=== PATIENT | male | born 1950 | race Caucasian/White ===

== ENCOUNTER 2017-05-13 10:01 | Inpatient (IN) ==
--- NOTE | 2017-05-12 22:20 | Discharge Summary ---
<Elissa Nance - Last Filed: 05/12/17 22:16> Date of Encounter: 05/12/17 - Discharge Diagnosis (1) Arthritis of knee, right Priority: Primary Status: Acute (2) Status post total knee replacement, right Priority: Primary Status: Acute (3) Obesity Priority: Secondary Status: Chronic Qualifiers: Obesity type: due to excess calories Obesity classification: unspecified obesity classification Serious obesity comorbidity presence: unspecified whether serious comorbidity present Qualified Code(s): E66.09 - Other obesity due to excess calories (4) BPH (benign prostatic hyperplasia) Priority: Secondary Status: Chronic Qualifiers: Lower urinary tract symptom presence: symptoms absent Qualified Code(s): N40.0 - Benign prostatic hyperplasia without lower urinary tract symptoms (5) 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 05/12/17 [Rx] OxyCODONE Immed Rel [Roxicodone 5 MG] 5 - 10 mg PO Q6HR PRN #40 tablet 05/12/17 [Rx] Aspirin [Lo-Dose Aspirin EC] 81 mg PO DAILY 05/13/17 [History] B2/Vits A,C,E/Lut/Zeaxanth/Min [Icaps Tablet] 1 tab PO DAILY 05/13/17 [History] Donepezil [Aricept] 10 mg PO HS 05/13/17 [History] Ferrous Sulfate [Iron] 325 mg PO DAILY 05/13/17 [History] Folic Acid 0.4 mg PO DAILY 05/13/17 [History] Meloxicam 15 mg PO DAILY 05/13/17 [History] Omeprazole [PriLOSEC] 20 mg PO DAILY 05/13/17 [History] Tamsulosin [Flomax] 0.4 mg PO DAILY 05/13/17 [History] Allergies/Adverse Reactions: Allergies No Known Allergies Allergy (Unverified 05/08/17 10:24) Primary care physician: PCP NONE - Patient Status Disposition: Home Health Service Condition: Good - Discharge Instructions Follow Up With: NONE,PCP [Non-Partnered Physician] - - Hospital Course Hospital course: Mr. Hoffman is a 66 year old male - Time Spent with Patient Total time spent providing and/or coordinating discharge services: <Andrew Rangel - Last Filed: 05/14/17 06:43> Date of Encounter: 05/14/17 Time of Encounter: 06:42 - Discharge Diagnosis (1) Obesity (BMI 30.0-34.9) Priority: Secondary Status: Chronic (2) Arthritis of knee, right Priority: Primary Status: Chronic (3) Status post total knee replacement, right Priority: Primary Status: Acute (4) BPH (benign prostatic hyperplasia) Priority: Secondary Status: Chronic Qualifiers: Lower urinary tract symptom presence: symptoms absent Qualified Code(s): N40.0 - Benign prostatic hyperplasia without lower urinary tract symptoms Primary care physician: Benjamin Palomo - Patient Status Functional capacity at discharge: uses cane/walker Overall status at discharge: patient is progressing back to baseline - Hospital Course Hospital course: Mr. Hoffman is a 66 year old male Status post total knee replacement right The patient had an uneventful postoperative course. They received antibiotics and physical therapy and were discharged in stable condition. There will follow -up in the office in 2 weeks. - Time Spent with Patient Total time spent providing and/or coordinating discharge services:
--- NOTE | 2017-05-12 22:22 | Physician Discharge Referral ---
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 For more information, call the [place] Tobacco Quit Line at 5-271-GIJS-NOW. - Diet/Nutrition Diet/Nutrition Orders: Regular - Activity Activity Orders: Up ad jorge, Ambulate - Services Needed Following services are medically necessary services: Nursing, Home Health Aide, Physical Therapy, Occupational Therapy Other Treatments: Opsite dressing, leave intact until first post-operative visit. If dressing becomes >50% saturated, contact office, remove dressing and place appropriate dressing in its place. Do not allow for dressing to get wet. Lexy in place, plan to remove at post-operative day #14-16. Total Joint Precautions x 6 weeks Apply cold therapy wrap 3-6x/day for 20 minutes at a time. Encourage ambulation throughout the day Use Incentive spirometer 10x/hour. Elevate affected extremity above heart as tolerated. Brace: Wear knee immobilizer at night x 2 weeks. - Transfer Medications Prescriptions: OxyCODONE Immed Rel [Roxicodone 5 MG] 5 - 10 mg PO Q6HR PRN #40 tablet PRN Reason: Pain Aspirin Enteric Coated [Aspirin EC] 325 mg PO DAILY #21 tablet. Home Medications: Aspirin Enteric Coated [Aspirin EC] 325 mg PO DAILY #21 tablet. 05/12/17 [Rx] OxyCODONE Immed Rel [Roxicodone 5 MG] 5 - 10 mg PO Q6HR PRN #40 tablet 05/12/17 [Rx] Allergies/Adverse Reactions: Allergies No Known Allergies Allergy (Unverified 05/08/17 10:24) Certification: Further, I certify that my clinical findings support that this patient is homebound (i.e. absences from home require considerable and taxing effort and are for medical reasons or episcopalian services or infrequently or short duration when for other reasons) because: Homebound Reason: Post-surgery restriction and or conditions limit ability to leave home Attestation: My signature below is to certify that this patient is under my care and that I, or nurse practitioner, or a physician's executive staff assistant working with me, has a face-to -face encounter with this patient.
--- NOTE | 2017-05-13 10:55 | History & Physical Report ---
Date of Encounter: 05/13/17 Time of Encounter: 10:55 24 Hour HP Update - Instructions Instructions: If the History and Physical is less than 30 days old and was completed prior to A.M. admission and or procedure and has NOT been updated on calendar day of procedure please complete this update prior to performing procedure. - Update Patient reports changes in Medical Condition: No Changes in examination, assessment, or condition: No Changes in Medication: No Preop tests/diagnostics Reviewed: Yes Surgery Remains Indicated: Yes Consent for Planned Operative Procedure(s) Verified: Yes - Pre-Operative Checklist Preoperative Checklist Indicated: No Prophylactic Antibiotic Ordered: Yes Is VTE Prophylaxis Indicated?: Yes
[2017-05-13] MEDS ORDERED: CeFAZolin Pre 2,000 MG/100 ML 2,000 MG/100 ML BAG IVPB ONE (10:58)
[2017-05-13] MEDS ORDERED: Ringers Solution, Lactated 1,000 ML IVC SCH ×2 (11:00→15:14)
[2017-05-13] MEDS ORDERED: *HR* Midazolam HCl 2 MG/2 ML VIAL ONE (11:26)
[2017-05-13] MEDS ORDERED: *HR* FentaNYL (PF) 100 MCG/2 ML VIAL ONE (11:26)
[2017-05-13] MEDS ORDERED: *HR* Propofol 200 MG/20 ML VIAL IVP ONE (11:26)
--- NOTE | 2017-05-13 11:26 | Anesthesia Evaluation PreOp ---
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 Any Significant HX Other Medical History: Denies Any Significant HX, GERD Anesthesia History: No Prior Anesthetic Complications, Past Anesthesia (hernia, r knee arth, tonsils) Alcohol Use: none Drug use: none Medications and Allergies Aspirin Enteric Coated [Aspirin EC] 325 mg PO DAILY #21 tablet.dr 05/12/17 [Rx] OxyCODONE Immed Rel [Roxicodone 5 MG] 5 - 10 mg PO Q6HR PRN #40 tablet 05/12/17 [Rx] Aspirin [Lo-Dose Aspirin EC] 81 mg PO DAILY 05/13/17 [History] B2/Vits A,C,E/Lut/Zeaxanth/Min [Icaps Tablet] 1 tab PO DAILY 05/13/17 [History] Donepezil [Aricept] 10 mg PO HS 05/13/17 [History] Ferrous Sulfate [Iron] 325 mg PO DAILY 05/13/17 [History] Folic Acid 0.4 mg PO DAILY 05/13/17 [History] Meloxicam [Meloxicam] 15 mg PO DAILY 05/13/17 [History] Omeprazole [PriLOSEC] 20 mg PO DAILY 05/13/17 [History] Tamsulosin [Flomax] 0.4 mg PO DAILY 05/13/17 [History] Allergies No Known Allergies Allergy (Unverified 05/08/17 10:24) - Meds/Allergy Pre-op Review Medications Reviewed: Yes Allergies Reviewed: Yes Beta Blockers on Current Med List: No Anesthesia Results - Labs Laboratory Tests 05/08/17 05/08/17 05/08/17 10:33 10:33 10:33 Hgb 14.2 Hct 43.4 Plt Count 248 PT 12.0 INR 1.1 APTT 28.3 Sodium 137 Potassium 4.0 Creatinine 0.85 - Imaging EKG: pending Anesthesia Exam O2 Sat Height 1.83 m Height 1.83 m Weight 115.212 kg Weight 115.212 kg O2 Sat by Pulse Oximetry 92 Vital Signs Temp Pulse Resp BP Pulse Ox 97.6 F 64 18 119/76 92 05/13/17 11:00 05/13/17 11:00 05/13/17 11:00 05/13/17 11:00 05/13/17 11:00 Height: 1.83 Weight: 115 NPO (# of Hours): >8 - HEENT Pupil (Motor): Pupils equal, EOMI Mallampati: II Teeth: Edentulous, Poor dentition Denture Type: Upper: Complete Oral Opening: Greater than 3 - BUNK HOUSE WORKER LOC: Oriented BUNK HOUSE WORKER Motor: Normal RUE, Normal LUE, Normal RLE, Normal LLE, Normal Face B[employer]K HOUSE WORKER Sensory: Normal: RUE, LUE, RLE, LLE, Face - Cardiac Rhythm: Regular Murmur: None - Pulmonary Breath Sounds: bilateral Clear Respiratory Effort: Symmetrical Anesthesia Assess/Plan ASA Score: 2 Modified Tasha Scale for Level of Consciousness: Cooperative, oriented, and tranquil Anesthetic Plan: General, Regional Monitoring Plan: Standard Monitors Recovery Plan: PACU
[2017-05-13] MEDS ORDERED: Lidocaine -MPF 2% 2 ML VIAL ONE (11:29)
[2017-05-13] MEDS ORDERED: CloNIDine Patch 0.1 MG PATCH (WEEKLY) TD ONE (11:30)
[2017-05-13] MEDS ORDERED: *HR* HYDROmorphone (PF) 1 MG/ML SYRINGE IVP PRN ×2 (11:30→15:14)
[2017-05-13] MEDS ORDERED: *HR* Labetalol 20 MG/4 ML SYRINGE IVP PRN (11:30)
[2017-05-13] MEDS ORDERED: *HR* Promethazine 25 MG/ML VIAL IVP PRN (11:30)
[2017-05-13] MEDS ORDERED: ROPIVACAINE HCL/PF 0.5% 30 ML VIAL ONE (12:28)
[2017-05-13] MEDS ORDERED: Bupivacaine/Clonidine Syringe 1 EACH SYRINGE ONE (12:29)
--- NOTE | 2017-05-13 12:52 | Anesthesia Procedures ---
Date of Encounter: 05/13/17 Time of Encounter: 12:49 Procedures: Anesthesia - Nerve Block Procedure Date: 05/13/17 Time: 12:49 Allergies/Adv Reactions: nka Pre-op Diagnosis: right knee OA Surgical Procedure: right TKA Checklist: Correct Patient Identifier, Correct procedure, History checked Correct side: Right Blood Thinner: No Monitor Applied: EKG, BP, Pulse Oximetry Supplemental Oxygen via Nasal Cannula (L/min): 2 Sedation: Versed (mg): 2 Sedation: Fentanyl (mcg): 100 Indication: Post Op Analgesia Pre-op Neuro Deficits: No Block Type: Femoral, Other (IPACK / anterior infiltration) Catheter placed: No Sterile Technique: Yes Ultrasound used: Yes Anatomy identified: Yes Visual spread of Local: Yes Neuro Stimulation: Yes (femoral only) Nerve Stimulator Range: 0.2 - 0.4 mA Blood on Needle Aspiration: No Smooth Injection of Local: Yes Pain with Injection of Local: No Prep: Chlorhexadine Needle: 22 x 50 mm Stimuplex, 21 x 100 mm Stimuplex Local: 0.25% Bupivicaine w/Clonidine 20 mcg/cc (ipack / anterior infiltration only), Ropivacaine (0.5% femoral only), Other (decadron 10mg femoral only) Volume (cc): 70 Number of Attempts: 1 Complications: None/effective block Vitals: Vital Signs/O2 Sat/Glucose, Most Recent Temp Pulse Resp BP Pulse Ox 97.6 F 54 16 131/98 96 05/13/17 11:00 05/13/17 12:47 05/13/17 12:47 05/13/17 12:47 05/13/17 12:47
[2017-05-13] MEDS ORDERED: *HR* Magnesium Sulfate 1 GM/2 ML VIAL ONE (13:06)
[2017-05-13] MEDS ORDERED: *HR* Succinylcholine 200 MG/10 ML VIAL IVP ONE (13:07)
[2017-05-13] MEDS ORDERED: Lidocaine -MPF 4% 5 ML AMPUL ONE (13:10)
[2017-05-13] MEDS ORDERED: Ketorolac 30 MG/ML VIAL ONE (13:33)
[2017-05-13] MEDS ORDERED: *HR* HYDROmorphone 2 MG/ML SYRINGE ONE (13:34)
[2017-05-13] MEDS ORDERED: Dexamethasone 4 MG/ML VIAL ONE (13:36)
[2017-05-13] MEDS ORDERED: Ondansetron 4 MG/2 ML VIAL ONE (13:36)
--- NOTE | 2017-05-13 13:54 | Orthopedic Operative Note ---
Date of procedure: 05/13/17 Pre-op diagnosis: Right knee arthritis Post-op diagnosis: same Procedure: Procedure: Right Total knee replacement Estimated blood loss: 200 cc Hardware: Metal and polyethylene replacement. Arthrex Femur: 7 Tibia: 7 PS insert: 11 Patella: 40 Exam Under anesthesia: Loss of full extension 15 degrees varus alignment. Procedural Notes: Grade 4 arthritic changes medial compartment grade 3 arthritic changes patellofemoral joint. Operative procedure: The patient was brought to the operating room and placed on the operating room table. After general anesthesia was administered the operative knee was examined. Findings were noted in the exam under anesthesia. The operative extremity was prepped and draped in sterile surgical fashion. The patient received IV antibiotics prior to skin incision. A standard midline incision was made centered over the patella. The incision was made through the skin and subcutaneous tissue. A medial parapatellar tendon approach was performed. Care was taken to preserve tissue along the medial aspect of the patella. And to protect the patella tendon. The deep MCL was released off the medial tibia. The infra patella fat pad was excised. Knee was brought into flexion. Patient noted to have grade 4 arthritic changes medial compartment and grade 3 arthritic changes patellofemoral joint. The entry hole was made for the intramedullary femoral guide. The guide was seated in 6 degrees of valgus. Anterior cut was made followed by the distal cut. The ACL the PCL the medial and the lateral menisci were excised. The tibia was subluxed forward. The entry hole was made for the intramedullary tibial guide. Guide was seated to resect 2 mm off the more abnormal side. The knee was brought into flexion the distal femur was sized to a 7. The femoral guide was seated, the anterior cut was made followed by the posterior condylar cut, followed by the chamfer cuts. The finishing guide was seated the box cut was made and the lug holes were drilled. The tibia was sized to a 7, the tibial tray was seated and prepared with the large drill followed by the fin cutter. Trial reduction revealed full extension no varus valgus instability with the appropriate alignment PS Renata. The patella was everted and cut was made at the level of the insertion of the quadriceps and patella tendon. The patella was sized to a 40 the guide was seated and the lug holes are drilled. Trial reduction revealed excellent patella tracking. All trial components were removed all bony surfaces were irrigated. The tibia was cemented first followed by the femur. The 11 PS Renata was seated and the knee was brought into full extension. The patella was cemented and held in place with the patellar holding clamp. After the cement had hardened, the knee sat for 2 minutes with a Betadine saline solution. The knee was then irrigated out with 2 L of pulse irrigation. The PA close the knee. The extensor mechanism was closed with #2 FiberWire suture and #2 PDS suture. The subcutaneous tissue was then irrigated and closed deep with #1 PDS suture superficially with 0 PDS suture and skin was closed with skin enrique. The patient was then placed in a sterile dressing and a postoperative brace extubated and transferred to recovery room in stable condition. Anesthesia: MUMTAZ Surgeon: Andrew Rangel Paper Testing Supervisor: Elissa Nance Condition: stable Disposition: PACU
[2017-05-13] MEDS ORDERED: *HR* HYDROmorphone (PF) 1 MG/ML SYRINGE ONE (14:30)
--- NOTE | 2017-05-13 14:59 | Anesthesia Evaluation Post Op ---
Date of Encounter: 05/13/17 Time of Encounter: 14:58 - Vital Signs Vital Signs: Vital Signs/O2 Sat/Glucose, Most Current Temp Pulse Resp BP Pulse Ox 05/13/17 14:50 97.8 F 63 16 132/82 100 05/13/17 14:40 61 16 139/98 99 05/13/17 14:30 70 16 143/95 97 05/13/17 14:20 97.1 F L 106 16 129/84 96 05/13/17 12:47 54 16 131/98 96 05/13/17 12:18 57 16 127/72 96 05/13/17 11:00 97.6 F 64 18 119/76 92 - Lungs Lungs: Clear Ascult./Percussion - Airway Airway: Non-obstructed - Cardiovascular Regular Rate - Mental Status Mental Status: Alert & Oriented, Answers Appropriately - Pain Pain Scale: 0 - Nausea Vomiting Nausea Vomiting: Not Present - Hydration Hydration: Ice chips - Discharge PostOp Status: Transfer Patient to floor
[2017-05-13 15:06] LABS: Hematocrit 40.6 % (37.5-50.1); Hemoglobin 13.3 g/dL (12.9-16.9)
[2017-05-13] MEDS ORDERED: Sennosides 8.6 MG TABLET PO PRN (15:14)
[2017-05-13] MEDS ORDERED: Naloxone 0.4 MG/ML INJ IVP PRN (15:14)
[2017-05-13] MEDS ORDERED: *HR* OxyCODONE Immed Rel 5 MG TABLET PO PRN ×2 (15:14)
[2017-05-13] MEDS ORDERED: Ondansetron 4 MG/2 ML VIAL IVP PRN (15:14)
[2017-05-13] MEDS ORDERED: MOM Conc 10 ML UD.LIQ PO PRN (15:14)
--- NOTE | 2017-05-13 16:53 | Electrocardiograph Report ---
[facility] Test Date: 2017-05-13 Pat Name: Mayco Hoffman Department: 106 Room: [facility] Gender: M Auto Service Writer: ISA : 1950 Requested By: Kun Beach Order Number: [id number] Reading MD: Quentin Pearce MD Measurements Intervals [place] Rate: 60 P: 54 VT: 169 QRS: 24 QRSD: 102 T: 32 QT: 431 QTc: 431 Interpretive Statements SINUS RHYTHM INTERPRETATION BASED ON A DEFAULT AGE OF 40 YEARS Electronically Signed On 05-13-2017 16:51:39 EDT by Quentin Pearce MD
[2017-05-13] MEDS: ceFAZolin 2,000 MG in D5% in Water 100 ML IVPB SCH ×2 (16:56→23:07)
[2017-05-13] MEDS: *HR* Enoxaparin 30 MG/0.3 ML SYRINGE SQ SCH (17:04)
[2017-05-13] MEDS ORDERED: *HR* Enoxaparin 30 MG/0.3 ML SYRINGE SQ SCH (18:00)
[2017-05-13] MEDS ORDERED: Temazepam 15 MG CAPSULE PO PRN (21:00)
[2017-05-14] MEDS: *HR* Enoxaparin 30 MG/0.3 ML SYRINGE SQ SCH ×2 (04:19→16:55)
[2017-05-14 05:34] LABS: Hematocrit 40.3 % (37.5-50.1); Hemoglobin 13.5 g/dL (12.9-16.9)
[2017-05-14 05:59] LABS: BUN/Creatinine Ratio 16 (6-26); Blood Urea Nitrogen 15 mg/dL (8-26); Calcium 9.1 mg/dL (8.6-10.8); Carbon Dioxide 25 mEq/L (19-29); Chloride 105 mEq/L (98-109); Glucose 152 mg/dL (70-99); Osmolality,Calculated 288 (280-300); Potassium 4.1 mEq/L (3.5-4.5); Sodium 137 mEq/L (136-145); eGFR For African Americans > 60 (> 60); eGFR For Non-African Americans > 60 (> 60)
--- NOTE | 2017-05-14 06:44 | Orthopedics Progress Note ---
Date of Encounter: 05/14/17 Time of Encounter: 06:43 - Assessment and Plan (1) Obesity (BMI 30.0-34.9) Current Visit: Yes Status: Chronic (2) Arthritis of knee, right Current Visit: Yes Status: Chronic (3) Status post total knee replacement, right Current Visit: Yes Status: Acute (4) BPH (benign prostatic hyperplasia) Current Visit: Yes Status: Chronic Qualifiers: Lower urinary tract symptom presence: symptoms absent Qualified Code(s): N40.0 - Benign prostatic hyperplasia without lower urinary tract symptoms Subjective Interval history: Patient was seen this morning doing well without complaints. Afebrile vital signs stable. Operative extremity: Neurovascularly intact Dressing clean dry and intact Calves nontender Assessment and plan: Continue with postoperative care Hematocrit 40 discharged today Objective Vital signs: Vital Signs Temp Pulse Resp BP Pulse Ox 05/14/17 04:15 97.7 F 57 17 139/76 97 05/14/17 01:10 97.8 F 67 18 137/86 95 05/13/17 17:39 98.2 F 69 16 150/78 93 05/13/17 16:53 97.9 F 57 16 137/81 97 05/13/17 15:43 97.5 F L 68 16 131/78 95 05/13/17 15:20 97.9 F 60 14 136/82 96 05/13/17 15:10 97.2 F L 56 16 127/79 100 05/13/17 15:00 60 16 139/85 98 05/13/17 14:50 97.8 F 63 16 132/82 100 05/13/17 14:40 61 16 139/98 99 05/13/17 14:30 70 16 143/95 97 05/13/17 14:20 97.1 F L 106 16 129/84 96 05/13/17 12:47 54 16 131/98 96 05/13/17 12:18 57 16 127/72 96 05/13/17 11:00 97.6 F 64 18 119/76 92 Intake and Output 05/13/17 05/13/17 05/14/17 15:59 23:59 07:59 Intake Total 250 / 250 300 / 300 Output Total 200 / 200 475 / 475 1700 / 1700 Balance -200 / -200 -225 / -225 -1400 / -1400 Intake: IV Fluids 100 / 100 100 / 100 Ancef 2,000 MG In 100 / 100 100 / 100 Dextrose 5% 100 ML @ 200 mls/hr IVPB Q8HR [facility] Rx#: [id number] Oral 150 / 150 200 / 200 Output: Urine 0 / 0 475 / 475 1700 / 1700 Estimated Blood Loss 200 / 200 Other: Weight 115.212 kg - Labs CBC & BMP: 05/14/17 05:21 05/14/17 05:21 Labs: Abnormal lab results Glucose 152 mg/dL (70-99) H 05/14/17 05:21 - VTE Documentation of Mechanical Device: Venous foot pump, device Consult Discharge Plan - Plan Referrals: NONE,PCP [Non-Partnered Physician] -
[2017-05-14] MEDS ORDERED: Aspirin Enteric Coated 81 MG Tablet PO SCH (09:00)
[2017-05-14] MEDS ORDERED: (Folic Acid [Folic Acid] 0.4 MG) PO SCH (09:00)
[2017-05-14] MEDS ORDERED: (B2/Vits A,C,E/Lut/Zeaxanth/Min [Icaps Tablet] 1 TAB) PO SCH (09:00)
--- NOTE | 2017-05-14 12:40 | Event Note ---
Date of Encounter: 05/14/17 Time of Encounter: 12:40 PCR - POD#1 - Right TKR Patient seen at bedside. Pain control: Yes Participating in PT. All questions and concerns addressed. Educated on use of incentive spirometer, ambulation, and hydration. Patient educated on post-operative restrictions and care. Addressed: See above D/C plan:.Home health today.
[2017-05-15] MEDS: *HR* Enoxaparin 30 MG/0.3 ML SYRINGE SQ SCH (05:27)
[2017-05-15 05:53] LABS: Hematocrit 33.3 % (37.5-50.1)
[2017-05-15 05:57] LABS: Hemoglobin 10.9 g/dL (12.9-16.9)
[2017-05-15 06:00] LABS: BUN/Creatinine Ratio 18 (6-26); Blood Urea Nitrogen 16 mg/dL (8-26); Calcium 8.3 mg/dL (8.6-10.8); Carbon Dioxide 25 mEq/L (19-29); Chloride 108 mEq/L (98-109); Glucose 150 mg/dL (70-99); Osmolality,Calculated 296 (280-300); Sodium 141 mEq/L (136-145); eGFR For African Americans > 60 (> 60); eGFR For Non-African Americans > 60 (> 60)
[2017-05-15 07:02] VITALS: BP 147/68
--- NOTE | 2017-05-15 07:42 | Orthopedics Progress Note ---
Date of Encounter: 05/15/17 Time of Encounter: 07:41 - Assessment and Plan (1) Obesity (BMI 30.0-34.9) Current Visit: Yes Status: Chronic (2) Arthritis of knee, right Current Visit: Yes Status: Chronic (3) Status post total knee replacement, right Current Visit: Yes Status: Acute (4) BPH (benign prostatic hyperplasia) Current Visit: Yes Status: Chronic Qualifiers: Lower urinary tract symptom presence: symptoms absent Qualified Code(s): N40.0 - Benign prostatic hyperplasia without lower urinary tract symptoms Subjective Interval history: Patient was seen this morning doing well without complaints. Discharge held yesterday secondary to pain control. Afebrile vital signs stable. Operative extremity: Neurovascularly intact Dressing clean dry and intact Calves nontender Assessment and plan: Continue with postoperative care Hematocrit 33 discharged today Objective Vital signs: Vital Signs Temp Pulse Resp BP Pulse Ox 05/15/17 06:43 98.5 F 68 16 147/68 99 05/15/17 03:26 98.3 F 62 16 144/71 98 05/14/17 23:43 98.5 F 68 14 118/66 97 05/14/17 19:59 98.5 F 58 15 122/70 97 05/14/17 16:00 98.1 F 84 14 112/68 97 05/14/17 11:49 97.8 F 67 14 139/74 97 Intake and Output 05/14/17 05/14/17 05/15/17 15:59 23:59 07:59 Intake Total 1390 / 1390 360 / 360 Output Total 100 / 100 250 / 250 225 / 225 Balance 1290 / 1290 110 / 110 -225 / -225 Intake: Oral 1390 / 1390 360 / 360 Output: Urine 100 / 100 250 / 250 225 / 225 Other: Meal Lunch Dinner Percent of Meal Consumed 100% 100% # Voids 1 Blood Glucose* 130 - Labs CBC & BMP: 05/15/17 05:10 05/15/17 05:10 Labs: Abnormal lab results Hgb 10.9 g/dL (12.9-16.9) L D 05/15/17 05:10 Hct 33.3 % (37.5-50.1) L 05/15/17 05:10 Glucose 150 mg/dL (70-99) H 05/15/17 05:10 Calcium 8.3 mg/dL (8.6-10.8) L 05/15/17 05:10 - VTE Documentation of Mechanical Device: Venous foot pump, device Consult Discharge Plan - Plan Additional Instructions: Discharge Instructions: Total Knee Replacement Please call [facility] ([phone]), your Primary Care Physician, or report to the Emergency Room if you have any of the following symptoms: Nausea, vomiting, fever greater that 101.5, swelling, chest pain, shortness of breath, increased pain/redness/drainage/odor for your incision site, numbness/ tingling, or any other concerning symptoms. ACTIVITY:Weight-bearing as tolerated. You may progress off support (crutches or walker) as tolerated. MEDICATIONS: Upon discharge resume your home medications. Take all the medications as prescribed. Take a stool softener if taking narcotic pain medications. Stool softeners are only effective if you drink enough fluids. Drink 6-8 glass of water or fluids a day, unless this is not allowed for another health problem. Despite using stool softeners, if you haven't had a bowel movement in 3 days, please switch to a gentle laxative. Gentle laxatives are sold over the counter. You should have a bowel movement within 24 hours, if not call the office. You will be discharged from the hospital with a prescription for pain medication. You are encouraged to decrease the use of narcotic pain medication as tolerated. Should you require a refill, please call the office. [facility] prescribes narcotic pain medication for only 4-6 weeks after surgery. If you require pain medication beyond this time period, you may be referred to your Primary Care Physician or to the Pain Clinic for further evaluation. Plan ahead for refills on pain medication as many narcotics either need to be picked up at the office or mailed. It is best to call 48-72 hours in advance of needing a prescription refill so you don't run out of medication. To help control the post-operative pain, you may take NSAIDs (Aleve,Advil, Motrin, Ibuprofen, Naprosyn) or Tylenol as prescribed on the bottle in addition to the pain medication. ANTICOAGULATION (blood thinners): Continue your Aspirin, Lovenox or Coumadin as prescribed to help prevent a blood clot in the leg or in the lungs. As long as your incision remains dry and you tolerate the NSAIDs (Aleve, Advil, Motrin, ibuprofen, naprosyn), it is OK to use the NSAIDS while you are taking your anticoagulation medication. Should your incision start to drain, stop the NSAID and contact our office. Common symptoms of blood clot in the legs include: localized pain, swelling, calf tenderness, redness or discoloration of the skin. Blood clot in the lung symptoms include: shortness of breath, rapid pulse, sweating, and chest pain that worsens with deep breathing, coughing up blood, lightheadedness, feelings of anxiety. If you experience any of these symptoms notify your physician immediately, go to the emergency room, or if having trouble breathing, call 911. WOUND CARE: Leave the dressing on for 7 to 10days. You may change the dressing if it becomes saturated greater than 50%. Do not get the dressing wet at anytime. Wash your hands with antibacterial soap, rinse and dry prior to any wound care. If you have enrique the visiting nurse or rehab facility can remove the stapes 10-14 days after surgery and place steri-strips across the wound. Leave the steri-strips in place until they fall off on their won. You may let water from the shower run on top of the steri-strips. If you do not have a visiting nurse or rehab facility, you will need to return to the office at 10-14 days for the enrique to be removed. If you have itching or redness around the dressing call the office. FOLLOW-UP: Please follow up with your surgeon in the orthopedic clinic in 4 weeks from the day of surgery. If you have enrique that need to be removed, you will need to come back to the office in 10-14 days from the day of surgery. Referrals: Andrew Rangel MD [Partnered Physician] - 06/12/17 4:45 pm Elissa Nance PAC [Physician Asphalt Spreader Operator] - 05/31/17 8:30 am NONE,PCP [Non-Partnered Physician] -
== END 2017-05-15 09:03 | disposition home health service (06) | DRG 470 ==
LOC: SAMDAY 10:01 → 3NENU 15:11
PROVIDERS: ADMIT Orthopaedic Surgery; ATTEND Orthopaedic Surgery